=== PATIENT | female | born 1950 | race Caucasian/White ===

== ENCOUNTER → 2017-01-16 | Outpatient (CLI) | payer OTHER, MEDICARE ==
[~2017-01-16] MED LIST: ACETAMINOPHEN PO; ALDACTONE25 MG PO; ALLEGRA180 MG PO; ALPRAZOLAM PO; FUROSEMIDE40 MG PO; KCL PO; LASIX PO; LEVOTHYROXINE100 MCG PO; LIBRAX1 CAP 5/2. PO; LIPITOR20 MG PO; NEXIUM PO; NITROFURANTOIN; NITROFURANTOIN50 M1 PO; PILOCARPINE HCL5 MG PO; POTASSIUM CL; PROMETHAZINE HC25 MG PO; REGLAN; REGLAN10 MG PO; SERTRALINE HCL25 MG PO; TENORMIN25 MG PO; TRACLEER62.5 MG; VENTAVIS; VERAMYST10 GM; XANAX XR1 MG PO
--- NOTE | ~2017-01-16 | MR113 ---
[facility] A Service of [facility] RADIOLOGY TEXT RESULTS PATIENT: HALEY JIMENEZ LOCATION: [facility] : 54 UNIT #: [id number] AGE: [address]: Vernon Gonzalez MD SEX: F ORDER DR: [id number] [address] [address] [id number] O MR#: [id number] Acc #: [id number] NAME: HALEY JIMENEZ : 1950 SEX: F STUDY DATE/TIME: 01/16/2017 14:33 UNIT: [facility] ROOM: STUDY DESCRIPTION: MR Lumbar Wo Contrast Attending Physician: Vernon Gonzalez M.D. Referring Physician: Vernon Gonzalez M.D. Ordering Physician: Vernon Gonzalez M.D. Primary Care Physician: Vernon Gonzalez M.D. MRI CENTER REPORT This report is preliminary unless electronic signature is present. EXAM Lumbar spine MRI HISTORY Back pain toward the left radiating to the left hip and left lower extremity. Symptoms over the past 5 months with recent radiation over toward the right side. TECHNIQUE Multiplanar imaging of the lumbar spine was performed with short and long TR. FINDINGS Alignment is satisfactory. Degenerative changes are seen at all 5 lumbar discs. At L1-2, there is no significant disc bulging or herniation. There is mild facet hypertrophy. At L2-3, there is disc space narrowing with mild broad-based posterior disc bulging but no significant canal or foraminal narrowing. At L3-4, the disc is desiccated with minimal concentric disc bulging and mild central stenosis. At L4-5, there is moderate concentric disc bulging and mild facet hypertrophy. Central stenosis is moderate. Foraminal stenosis is mild bilaterally. At L5-S1, there is broad-based posterior disc bulging with osteophyte. Central stenosis is mild. Foraminal narrowing is mild bilaterally. The conus is normal. There is no evidence of marrow edema. No [facility] A Service of [facility] RADIOLOGY TEXT RESULTS PATIENT: HALEY JIMENEZ LOCATION: [facility] : 54 UNIT #: [id number] AGE: [address]: Vernon Gonzalez MD SEX: F ORDER DR: paraspinous masses are seen. IMPRESSION Multilevel degenerative disc and facet disease as described above. Central stenosis is most prominent at L4-5, present to a moderate degree. No evidence of exiting nerve root compression or disc herniation. Dictated by... Dionisio Garcia M.D. THIS IS AN ELECTRONICALLY VERIFIED REPORT Dionisio Garcia M.D. at 01/17/2017 4:54 PM DYLAN/maru TD: 01/17/2017 10:12 JOB #: [id number] MRI CENTER REPORT Page 1 of 1
== END | disposition home or self-care (01) ==
LOC: SMRI 07:20
DX: G58.9 Mononeuropathy, unspecified (principal); M51.36 Other intervertebral disc degeneration, lumbar region; M48.06 Spinal stenosis, lumbar region
CPT/HCPCS: 72148

== ENCOUNTER → 2017-07-10 | Outpatient (CLI) | payer OTHER, MEDICARE ==
[2017-07-14 21:50] LABS: ANA SCREEN Positive (Negative); ANA TITER (ANA) >=1:1280 (Negative); ANA TITER COMMENT Has been added (()); NUCLEAR PATTERN (ANA) Centromere (()); SJOGREN'S SSA AB <1.0 AI (<1.0); SJOGREN'S SSB AB <1.0 AI (<1.0)
== END | disposition home or self-care (01) ==
LOC: SLAB 10:48
PROVIDERS: Otolaryngology
DX: M35.00 Sjogren syndrome, unspecified (principal)
CPT/HCPCS: 36415; 85651; 86038; 86039; 86235; 86430